=== PATIENT | male | born 1985 | race Caucasian/White ===

== ENCOUNTER 2021-02-27 23:02 | Emergency (ER) | payer BC, MEDICAID, SELFPAY ==
[2021-02-27 23:02] VITALS: BP 142/89; PULSE 66; RESP 18; TEMP 36.4; O2SAT 95; BMI 23.0
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
--- NOTE | 2021-02-27 23:32 | PC.NURSE ---
Pt refused Zofran and Hydromorphone at this time
[2021-02-27 23:43] LABS: Basophils # 0.1 10^3/uL (0.0-0.1); Basophils % 0.3 %; Eosinophils # 0.1 10^3/uL (0.0-0.8); Eosinophils % 0.3 %; Hematocrit 39.9 % (42.0-52.0); Hemoglobin 13.5 g/dL (11.7-16.6); Lymphocytes # 1.6 10^3/uL (0.8-4.8); Lymphocytes % 5.3 %; Mean Corpuscular HGB Conc 33.8 g/dL (30.0-36.0); Mean Corpuscular Hemoglobin 30.5 pg (28.0-34.0); Mean Corpuscular Volume 90.3 fL (80-94); Mean Platelet Volume 9.4 fL (7.4-10.4); Monocytes # 1.8 10^3/uL (0.2-0.9); Neutrophils # 25.98 10^3/uL (1.8-7.7); Neutrophils % 87.4 %; Nucleated Red Blood Cells % 0 %; Platelet Count 360 10^3/cmm (130-400); Red Blood Count 4.42 10^6/uL (4.1-5.3); Red Cell Distribution Width 13.6 % (12.1-15.1); White Blood Count 29.8 10^3/uL (4.0-10.0)
[2021-02-27] MEDS: ondansetron 2 mg/ML SDV 2 mL 4 MG IVP (23:46)
[2021-02-27] MEDS: HYDROmorphone 1 mg/mL INJ 1 mL IVP (23:47)
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
[2021-02-27 23:48] VITALS: BP 150/84; PULSE 84; RESP 19; O2SAT 97
[2021-02-28 00:08] LABS: Alanine Aminotransferase 23 U/L (0-41); Albumin Level 4.2 g/dL (3.5-5.2); Alkaline Phosphatase 82 IU/L (40-130); Anion Gap 15.9 (5-19); Aspartate Amino Transferase 34 U/L (0-40); Blood Urea Nitrogen 14 mg/dL (6-20); Calcium 8.2 mg/dL (8.5-10.5); Carbon Dioxide 21 mmol/L (22-29); Chloride 103 mmol/L (98-107); Globulin 2.4 g/dL (1.3-4.6); Glomerular Filtration Rate 96.6 mL/min (90-130); Glucose 92 mg/dL (65-115); Osmolality Calculated 282 mOsm/kg (285-295); Potassium 3.9 mmol/L (3.5-5.1); Sodium 136 mmol/L (136-145); Total Bilirubin 0.3 mg/dL (0.15-1.2); Total Protein 6.6 g/dL (6.6-8.7)
[2021-02-28 00:09] LABS: Alcohol Level 49 mg/dL (0-10)
[2021-02-28] MEDS: iohexol 300 mg/mL 100 mL Btl IV (00:19)
[2021-02-28 00:26] VITALS: BP 168/99; PULSE 74; RESP 16; TEMP 36.7; O2SAT 99
[2021-02-28 00:28] VITALS: BP 156/77; PULSE 72; RESP 19; O2SAT 95
[2021-02-28 00:52] LABS: Amphetamines Screen Urine Positive (Negative); Barbiturates Screen Urine Negative (Negative); Benzodiazepines Screen Urine Negative (Negative); Cocaine Screen Urine Negative (Negative); Opiate Screen Urine Negative (Negative); PCP Screen Urine Negative (Negative); THC Screen Urine Positive (Negative)
--- NOTE | 2021-02-28 01:03 | PC.NURSE ---
Report called to Kirt Méndez RN at [facility]
== END 2021-02-28 01:38 | disposition short-term general hospital (02) ==
PROVIDERS: Emergency Provider Emergency Medicine
DX: S72.091A Other fracture of head and neck of right femur, initial encounter for closed fracture (principal); S73.014A Posterior dislocation of right hip, initial encounter; V03.90XA Pedestrian on foot injured in collision with car, pick-up truck or van, unspecified whether traffic or nontraffic accident, initial encounter
CPT/HCPCS: 51702; 71045; 74177; 80053; 80306; 80307; 85025; 85610; 96374; 96375; 99285; J1170; J2405; Q9967

== ENCOUNTER 2023-08-09 16:12 | Outpatient (CLI) | payer BC, MEDICAID, SELFPAY ==
--- NOTE | 2023-08-09 16:33 | XRR_ITS ---
PROCEDURE INFORMATION: Exam: XR Left Knee Exam date and time: 08/09/2023 4:38 PM Age: 38 years old Clinical indication: Pain; Prior surgery; Surgery date: 6+ months; Surgery type: Left knee; Additional info: Left knee pain TECHNIQUE: Imaging protocol: Radiologic exam of the left knee. Views: 3 views. COMPARISON: No relevant prior studies available. FINDINGS: Bones/joints: Osseous structures are intact. Negative for fracture. Moderate tricompartmental DJD of the knee. Soft tissues: Normal. XR/XR knee LT 3V* [id number] IMPRESSION: No acute findings. Moderate tricompartmental DJD of the knee.
== END 2023-08-09 16:13 | disposition home or self-care (01) ==
LOC: RAD 16:17
PROVIDERS: Visit Provider Family Medicine
DX: M17.12 Unilateral primary osteoarthritis, left knee (principal); M25.562 Pain in left knee
CPT/HCPCS: 73562

== ENCOUNTER 2025-04-02 19:13 | Emergency (ER) | payer SELFPAY ==
--- OUTSIDE RECORDS SUMMARY | 2017-10-12 05:30 | XMS_ITS | Continuity of Care Document ---
Author Organization [facility] Address [id number] [address] Phone Care Team Providers Care Mumps Developer Name Role Phone Unavailable Unavailable Unavailable Allergies, Adverse Reactions, Alerts Substance Reaction Status Criticality No Known allergies Medications Medication Instructions Dosage Effective Dates (start - stop) Status Comments hydrocodone 5 mg-acetaminophen 325 mg tablet take 1 tablet by oral route every 6 hours as needed for pain for post-op pain 1.00 tablet - Active Procedures Procedure Date Limited Oral Evaluation Problem Focused Panoramic Film Extraction, Erupted Tooth Or Exposed [place] t (Elev Extraction, Erupted Tooth Or Exposed [place] ([facility] Extraction, Erupted Tooth Or Exposed [place] ([facility] Extraction, Erupted Tooth Or Exposed [place] (Elev Extraction, Erupted Tooth Or Exposed [place] (Elev Extraction, Erupted Tooth Or Exposed [place] (Elev Extraction, Erupted Tooth Or Exposed [place] (Elev Extraction, Erupted Tooth Or Exposed [place] (Elev Extraction, Erupted Tooth Or Exposed [place] (Elev Extraction, Erupted Tooth Or Exposed [place] t (Elev Extraction, Erupted Tooth Or Exposed [place] t (Elev Extraction, Erupted Tooth Or Exposed [place] t (Elev Extraction, Erupted Tooth Or Exposed [place] ([facility] EDR Approval Note Advance Directives Directive Yes / No Effective Date File Name No Information Encounters Encounter Description Practice Location Reason(s) For Visit Diagnoses Date Provider Providers Copied on Encounter [facility], [id number] [facility], [place], [place], [id number], [place] tel:[phone] [facility] Encounter for dental exam and cleaning w/o abnormal findings No Information Family History Family Member Type Diagnosis Age At Onset No Information Payers Payer name Insurance type Covered republican ID Lula krishnamurthy(s) [place] [employer] [id number] Social History Type Description Quantity Date Captured Comments Alcohol Use Details Caffeine Use Details Unknown Tobacco Use Status Moderate cigarette smoker (10-19 cigs/day) Smoking Status Heavy tobacco smoker Smoking Tobacco Use Details Cigarette: No Details Available Cigarette: 10 Cigarettes per day Sex Male Vital Signs Date / Time: Height Weight BMI Pulse Rate Blood Pressure Temperature Respiratory Rate Body Surface Area Head Circumference Head Circ. Percentile Wt./José. Percentile BMI percentile Pulse Ox Inhaled Ox 11:53 AM 129/74 mm[Hg] Chief Complaint And Reason For Visit No Information Reason For Referral Reason For Referral No Information Plan Of Treatment Date Type Action Status Goal Tobacco cessation counseling completed History Of Present Illness Encounter Date Complaint History Of Prese nt Illness No Information Functional Status Date Functional Assessmen t No Information Instructions Date Instruction Additional Infor mation Lifestyle education Related to D ental Examination Assessments Type Assessment Date No Information Patient Care Teams Name Effective Dates (start - stop) Status Members No Information
[2025-04-02 19:14] VITALS: BP 130/83; PULSE 48; RESP 17; TEMP 36.7; O2SAT 99; BMI 24.4
--- OUTSIDE RECORDS SUMMARY | 2025-04-02 19:24 | XMS_ITS | Clinical Summary ---
Author Organization [facility] Address [address] [facility] [address] [place] [address] Phone Care Team Providers Care Mission Support Specialist Name Role Phone Unavailable Primary Care Provider Unavailabl e Allergies No known active allergies Medications acetaminophen (TYLENOL) 500 mg tablet Take 2 Tablets (1,000 mg) by mouth every 8 hours as needed for Pain. 03/02/2021 Active aspirin (EDGARDO) 325 mg tablet Take 1 Tablet (325 mg) by mouth 2 times daily with meals. Take for six weeks. 03/02/2021 Active sennosides (SENOKOT) 8.6 mg tablet Take 1 Tablet (8.6 mg) by mouth daily. 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 Gender Identity Not on file Sexual Orientation Not on file Last Filed Vital Signs Vital Sign Reading Time Taken Comments Blood Pressure 137/80 03/19/2021 11:09 AM CDT Pulse 59 03/19/2021 11:09 AM CDT Temperature 36.7 C (98 F) 03/02/2021 8:20 AM CDT Respiratory Rate 14 03/02/2021 8:20 AM CDT Oxygen Saturation - - Inhaled Oxygen Concentration - - Weight 81.6 kg (180 lb) 03/19/2021 11:09 AM CDT Height 182.9 cm (6') 03/19/2021 11:09 AM CDT Body Mass Index 24.41 03/19/2021 11:09 AM CDT Plan of Treatment Health Maintenance Due Date Last Done Comments DTAP/TDAP/TD VACCINES (1 - Tdap) 2005 HEPATITIS B VACCINES (1 of 3 - 19+ 3-dose series) 2005 INFLUENZA VACCINE (#1) 2025 HPV VACCINES Aged Out No longer eligi ble based on patient's age to complete this topic Medical Devices Explanted Type Area Production Tool Engineer Device Identifier Shelf Expiration Date Model / Serial / Lot Screw Sidney [id number] 294.785 - [id number] Explanted:Qty : 1 on 02/28/2021 by Nacho Hunt MD Screw Right: Hip SYNTHES STRATEC [id number] / / ~[id number] [place] [address] MEDICAID
--- OUTSIDE RECORDS SUMMARY | 2025-04-02 19:25 | XMS_ITS | Clinical Summary ---
Author Organization [facility] Address [address] [facility] [address] [place] [address] Phone Care Team Providers Care Senior Catering Sales Manager Name Role Phone Unavailable Primary Care Provider Unavailabl e Allergies No known active allergies Medications acetaminophen (TYLENOL) 500 mg tablet Take 2 Tablets (1,000 mg) by mouth every 8 hours as needed for Pain. 03/02/2021 Active sennosides (SENOKOT) 8.6 mg tablet Take 1 Tablet (8.6 mg) by mouth daily. 03/02/2021 Active aspirin (EDGARDO) 325 mg tablet Take 1 Tablet (325 mg) by mouth 2 times daily with meals. Take for six weeks. 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 Gender Identity Not on file Sexual Orientation Not on file Last Filed Vital Signs Vital Sign Reading Time Taken Comments Blood Pressure 137/80 03/19/2021 11:09 AM CDT Pulse 59 03/19/2021 11:09 AM CDT Temperature 36.7 C (98 F) 03/02/2021 8:20 AM CDT Respiratory Rate 14 03/02/2021 8:20 AM CDT Oxygen Saturation 98% 03/02/2021 8:20 AM CDT Inhaled Oxygen Concentration - - Weight 81.6 [...] this topic Medical Devices Explanted Type Area Assistant Counsel Device Identifier Shelf Expiration Date Model / Serial / Lot Screw Sidney [id number] - [id number] Explanted:Qty: 1 on 02/28/2021 by Nacho Hunt MD at [facility] Screw Right: Hip SYNTHES STRATEC [id number] / / ~[id number] Insurance [facility] MEDICAID Advance Directives For more information, please contact: [phone] * Full Code (Latest Code Status on File) Date Activated Date Inactivated Comments 02/28/2021 7:17 PM 03/02/2021 5:17 PM * Full Code Date Activated Date Inactivated Comments 02/28/2021 10:59 AM 02/28/2021 7:17 PM
--- OUTSIDE RECORDS SUMMARY | 2025-04-02 19:25 | XMS_ITS | Encounter Summary ---
Author Organization [facility] Address [address] [place] [address] Care Team Providers Care Teacher'S Aide Name Role Phone Unavailable Primary Care Provider Unavailabl e Encounter Details Date Type Department Care Team (Latest Contact Info) Description 03/19/2021 Ancillary Orders [facility] [place] [address] [place] [address] Nacho Hunt MD [address] [place] [address] Closed fracture dislocation of right hip joint with routine healing, subsequent encounter Social History Tobacco Use Types Packs/Day Years Used Date Smoking Tobacco: Every Day Cigarettes Smokeless Tobacco: Current Chew Alcohol Use Standard Drinks/Week Comments Not Currently 0 (1 standard drink = 0.6 oz pur e alcohol) Sex and Gender Information Value Date Recorded Sex Assigned at Not on file 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 No / Unsure 03/19/2021 11:00 AM CDT documented as of this encounter Plan of Treatment Not on file documented as of this encounter Results * XR HIP 2 OR 3 VIEWS RT (03/19/2021 11:06 AM CDT) Anatomical Region Laterality Modality Lower Extremity Right Computed Radiogr aphy Narrative 03/19/2021 3:36 PM CDT AP pelvis and frog lateral right hip x-rays were reviewed by Dr. Hunt and show stable appearance of right hip. No signs of AVN. us Nacho Hunt MD DIAGNOSTIC IMAGING ORDER RICARDO Final Result documented in this encounter Visit Diagnoses Diagnosis Closed fracture dislocation of right hip joint with routine healing, subsequent encounter Closed fracture dislocation of right hip joint with routine healing, subsequent encounter documented in this encounter
--- OUTSIDE RECORDS SUMMARY | 2025-04-02 19:25 | XMS_ITS | Encounter Summary ---
Author Organization [facility] Address [address] [place] [address] Care Team Providers Care Harvest Manager Name Role Phone Unavailable Primary Care Provider Unavailabl e Encounter Details Date Type Department Care Team (Latest Contact Info) Description 12/19/2002 Outpatient Historical [facility] Family Medicine [place] [address] [facility] [address] [place] [id number] Kong Orr, DO NO ADDRESS ON FILE JOINT PAIN-L/LEG (Primary Dx) Social History Tobacco Use Types Packs/Day Years Used Date Smoking Tobacco: Never Assessed Sex and Gender Information Value Date Recorded Sex Assigned at Not on file 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
--- NOTE | 2025-04-02 19:26 | ED_ITS ---
HPI - Syncope 2 General: Chief Complaint: Syncope Stated Complaint: SYNCOPAL Time Seen by Provider: 04/02/25 19:23 History of Present Illness: 39-year-old male who presents emergency room with alcohol intoxication and a syncopal episode. Apparently was found down outside and a bystander attempted CPR but then he woke up and walked off. EMS was called and asked him to come for evaluation. When I see him initially he says he would just wants to go home. I ask him to stay for some fluids and some basic lab work to make sure he is okay and he agrees. Related Data Allergies Allergy/AdvReac Type Severity Reaction Status Date / Time No Known Allergies Allergy Verified 02/27/21 23:08 Review of Systems 2 Narrative: Constitutional symptoms: Negative except as documented in HPI. Skin symptoms: Negative except as documented in HPI. Eye symptoms: Negative except as documented in HPI. ENMT symptoms: Negative except as documented in HPI. Respiratory symptoms: Negative except as documented in HPI. Cardiovascular symptoms: Negative except as documented in HPI. Gastrointestinal symptoms: Negative except as documented in HPI. Genitourinary symptoms: Negative except as documented in HPI. Musculoskeletal symptoms: Negative except as documented in HPI. Neurologic symptoms: Negative except as documented in HPI. Psychiatric symptoms: Negative except as documented in HPI. Endocrine symptoms: Negative except as documented in HPI. Physical Exam 2 Narrative: EXAM NARRATIVE: General: Alert, no acute distress. Skin: Warm, dry. Head: Normocephalic, atraumatic. Neck: Supple, trachea midline. Eye: Extraocular movements are intact. Ears, nose, mouth and throat: Tacky oral mucosa Cardiovascular: Regular, Normal peripheral perfusion. Respiratory: Lungs are clear to auscultation, respirations are non-labored, breath sounds are equal, Symmetrical chest wall expansion. Gastrointestinal: Soft, Nontender, Non distended Musculoskeletal: Normal ROM, no deformity. Neurological: Alert and oriented, No focal neurological deficit observed. Psychiatric: Patient is cooperative, he does appear slightly intoxicated but is able to carry on a normal conversation. Course 2 Vital Signs: Vital signs: Vital Signs Temperature 98.0 F 04/02/25 19:14 Pulse Rate 55 L 04/02/25 19:48 Respiratory Rate 20 H 04/02/25 19:48 Blood Pressure 125/81 04/02/25 19:48 Pulse Oximetry 97 04/02/25 19:48 Oxygen Delivery Me thod Room Air 04/02/25 19:48 MDM - Syncope Medical Decision Making Medical decision making: Differential diagnosis including but not limited to and based on the above HPI, review of systems and physical exam: In this patient with alcohol intoxication we will check for renal failure and an alcohol level. Sodium. Liver enzymes. Orders placed to evaluate differential diagnosis based on the above differential, HPI and physical exam Lab Review: Laboratory results were reviewed and interpreted by myself the emergency room physician. Patient has some leukocytosis with white count of 27,000. Previous lab work shows this has been present in the past. No signs of infection. No renal failure. I reviewed the patient's medical record. Reexamination: Patient remained stable. No increased work of breathing. No altered mental status. No focal motor deficits. Assessment and plan: Alcohol intoxication Dehydration Syncope ? IV fluids given. Patient will be taken with friend or family - Discharged home - Discussed plan with patient. Answered any questions. - Evaluation and treatment of this problem were appropriate in the emergency setting. Lab Data 04/02/25 19:40 04/02/25 19:40 Laboratory Results WBC 27.07 10^3/uL (3.29-11.43) H 04/02/25 19:40 RBC 5.42 10^6/uL (3.85-5.65) 04/02/25 19:40 Hgb 15.90 g/dL (11.27-16.99) 04/02/25 19:40 Hct 47.5 % (37-53) 04/02/25 19:40 MCV 87.6 fl (82-101) 04/02/25 19:40 MCH 29.3 pg (27-33) 04/02/25 19:40 MCHC 33.5 g/dL (30-55) 04/02/25 19:40 RDW 13.1 % (12.1-15.1) 04/02/25 19:40 Plt Count 425 10^3/cmm (157-399) H 04/02/25 19:40 MPV 9.6 fL (7.4-10.4) 04/02/25 19:40 Neut % (Auto) 83.4 % 04/02/25 19:40 Lymph % (Auto) 6.9 % 04/02/25 19:40 Blount % (Auto) 3.3 % 04/02/25 19:40 Eos % (Auto) 5.5 % 04/02/25 19:40 Baso % (Auto) 0.5 % 04/02/25 19:40 Neut # (Auto) 22.61 10^3/uL (1.8-7.7) H 04/02/25 19:40 Lymph # (Auto) 1.9 10^3/uL (0.8-4.8) 04/02/25 19:40 Blount # (Auto) 0.9 10^3/uL (0.2-0.9) 04/02/25 19:40 Eos # (Auto) 1.5 10^3/uL (0.0-0.8) H 04/02/25 19:40 Baso # (Auto) 0.1 10^3/uL (0.0-0.1) 04/02/25 19:40 Nucleated RBC % (auto) 0 % 04/02/25 19:40 Nucleated RBCs # 0.0 /100WBC 04/02/25 19:40 Sodium 143 mmol/L (136-145) 04/02/25 19:40 Potassium 3.7 mmol/L (3.5-5.1) 04/02/25 19:40 Chloride 102 mmol/L (98-107) 04/02/25 19:40 Carbon Dioxide 21 mmol/L (22-29) L 04/02/25 19:40 Anion Gap 23.7 (5-19) H 04/02/25 19:40 BUN 11 mg/dL (6-20) 04/02/25 19:40 Creatinine 0.8 mg/dL (0.7-1.2) 04/02/25 19:40 GFR Calculation 108.2 mL/min (90-130) 04/02/25 19:40 Glucose 99 mg/dL (65-115) 04/02/25 19:40 Calculated Osmolality 295 mOsm/kg (285-295) 04/02/25 19:40 Lactic Acid 2.6 mmol/L (0.5-2.2) H 04/02/25 19:40 Calcium 10.0 mg/dL (8.5-10.5) 04/02/25 19:40 Total Bilirubin 0.2 mg/dL (0.15-1.2) 04/02/25 19:40 AST 28 U/L (0-40) 04/02/25 19:40 ALT 30 U/L (0-41) 04/02/25 19:40 Alkaline Phosphatase 105 U/L (40-130) 04/02/25 19:40 Total Protein 8.4 g/dL (6.6-8.7) 04/02/25 19:40 Albumin 4.7 g/dL (3.5-5.2) 04/02/25 19:40 Globulin 3.7 g/dL (1.3-4.6) 04/02/25 19:40 Ethyl Alcohol 233 mg/dL (0-10) H 04/02/25 19:40 No radiology studies performed this visit Discharge Plan Discharge Patient Disposition: Home Clinical Impression: Alcohol intoxication, Dehydration, Syncope Condition: Stable Discharge Orders: Discharge ED (Routine); Ordered 04/02/25 Ordered By: Yolanda Chew Discharge Diet: Usual diet Discharge Activity: Increase activity as tolerated Patient Instructions: Syncope (ED), Alcohol Intoxication (ED), Opioid Safety, Pain Management, Patient Portal & [place] Instructions Activity Restrictions/Additional Instructions: Thank you for choosing [facility] for your healthcare needs today. You have been screened and evaluated and felt safe for discharge. Health conditions do change or evolve sometimes and as such it is important that you follow up with your Primary Doctor to be re checked, 3-5 days is a general good time frame for follow up. You are always welcome to return to the ED for re assessment if your symptoms are worsening or you have new concerns Print Language: Austrian Coding Level of Care Code ED [place] [facility] for Berta Carrington
[2025-04-02 19:48] VITALS: BP 125/81; PULSE 55; RESP 20; O2SAT 97
[2025-04-02 19:55] LABS: Hematocrit 47.5 % (37-53); Hemoglobin 15.90 g/dL (11.27-16.99); Mean Corpuscular HGB Conc 33.5 g/dL (30-55); Mean Corpuscular Hemoglobin 29.3 pg (27-33); Mean Corpuscular Volume 87.6 fl (82-101); Nucleated Red Blood Cells % 0 %; Platelet Count 425 10^3/cmm (157-399); Red Blood Count 5.42 10^6/uL (3.85-5.65); White Blood Count 27.07 10^3/uL (3.29-11.43)
[2025-04-02 20:09] LABS: Alanine Aminotransferase 30 U/L (0-41); Albumin Level 4.7 g/dL (3.5-5.2); Alcohol Level 233 mg/dL (0-10); Alkaline Phosphatase 105 U/L (40-130); Anion Gap 23.7 (5-19); Aspartate Amino Transferase 28 U/L (0-40); Blood Urea Nitrogen 11 mg/dL (6-20); Calcium 10.0 mg/dL (8.5-10.5); Carbon Dioxide 21 mmol/L (22-29); Chloride 102 mmol/L (98-107); Creatinine Clr Calc Pharmacy 140.2833; Globulin 3.7 g/dL (1.3-4.6); Glucose 99 mg/dL (65-115); Osmolality Calculated 295 mOsm/kg (285-295); Potassium 3.7 mmol/L (3.5-5.1); Sodium 143 mmol/L (136-145); Total Protein 8.4 g/dL (6.6-8.7)
[2025-04-02 20:10] LABS: Lactic Sepsis W/Reflex 2.6 mmol/L (0.5-2.2)
[2025-04-02 20:28] VITALS: BP 134/71; PULSE 70; RESP 18; O2SAT 99
[2025-04-02 21:43] LABS: Reflex Lactate Order REFLEX LACTIC ORDERD
== END 2025-04-02 20:32 | disposition home or self-care (01) ==
PROVIDERS: Emergency Provider Emergency Medicine
DX: R55 Syncope and collapse (principal); F10.129 Alcohol abuse with intoxication, unspecified; Y90.7 Blood alcohol level of 200-239 mg/100 ml; E86.0 Dehydration
CPT/HCPCS: 36415; 80053; 80307; 83605; 85025; 99283